=== PATIENT | male | born 2000 | race Caucasian/White ===

== ENCOUNTER 2022-07-10 07:06 | Observation (INO) ==
--- NOTE | 2022-07-04 16:15 | Anesthesiology Consultation ---
Date of Service July 04, 2022 Assessment & Plan (1) Encounter for pre-operative examination: Plan - check BSG and BMP STAT am DOS. - COVID screening: Per merit system director on 07/04/2022: Travel screen negative, no known COVID-19 positive contacts or current COVID-19 related symptoms in past 2 weeks. To surgeon's discretion if preop COVID testing is needed. Chart Review Chart Review: Acceptable Risk for Surgery and Patient NOT seen in Pre Admission Testing History Surgery Operation Date: 07/10/22 09:35 Proposed Procedures p Laparoscopic Cholecystectomy - Osorio Perea MD Height/Weight Height: 6 ft 2 in Weight: 83.007 kg Allergies Allergy/AdvReac Type Severity Reaction Status Date / Time No Known Allergies Allergy Verified 07/04/22 15:02 Medications Home Medications Medication Instructions Recorded Confirmed Last Taken creatine monohydrate 1 ea PO QAM 07/04/22 07/04/22 Unknown insulin aspart U-100 100 unit/mL 1 unit continuous subcutaneous 07/04/22 07/04/22 Unknown subcutaneous solution (Novolog infusion UD U-100 Insulin aspart) multivitamin 1 tab PO QAM 07/04/22 07/04/22 Unknown zinc 50 mg tablet 50 mg PO QAM 07/04/22 07/04/22 Unknown Past Medical History Medical History DM type 1 (diabetes mellitus, type 1) GERD (gastroesophageal reflux disease) occasional Insulin pump in place Past Family History Family History Other Heart disease No family history of adverse response to anesthesia Past Surgical History Surgical History History of appendectomy History of esophagogastroduodenoscopy (EGD) History of wisdom tooth extraction Social History Smoking Status: Never smoker Do You Dip or Chew Tobacco: No Hx Alcohol Use: No alcohol intake frequency: a few times a month Hx Substance Use: No substance use type: does not use
[~2022-07-10 07:06] MED LIST: LR 15ML/HR IV SCH; ceFAZolin 2000MG 2,000 MG/15 ML SYR IV SCH
[2022-07-10] MEDS ORDERED: METOCLOPRAMIDE HCL INJ 5 MG/ML 2 ML VIAL ONE (07:44)
[2022-07-10] MEDS ORDERED: MIDAZOLAM HCL 1 MG/ML 2ML VIAL ONE (07:44)
[2022-07-10] MEDS ORDERED: fentaNYL citrate 100 MCG/2 ML VIAL ONE ×2 (07:44→08:59)
[2022-07-10] MEDS ORDERED: ONDANSETRON INJ 2 MG/ML 2 ML VIAL ONE (07:45)
[2022-07-10] MEDS ORDERED: LIDOCAINE 2% MPF LOCAL 5 ML VIAL INFIL ONE (07:45)
[2022-07-10] MEDS ORDERED: PROPOFOL IV EMULSION 10 MG/ML 20 ML VIAL IV ONE (07:45)
[2022-07-10 08:03] LABS: BUN Creatinine Ratio 13.1 (10-20); Calcium 9.1 mg/dl (8.5-10.1); Creatinine Clr Calc Pharmacy 111.4 ml/min; Est GFR (African American) 97.6 ml/min; Est GFR (Non-African American) 84.2 ml/min; Potassium 3.7 mmol/L (3.5-5.1)
--- NOTE | 2022-07-10 08:10 | History & Physical Bridge Note ---
Date of Service July 10, 2022 History & Physical Bridge Note I have examined the patient, reviewed the History & Physical and in the interval since the performance of the History & Physical I have noted the following changes of clinical significance: no changes noted
[2022-07-10] MEDS ORDERED: ATROPINE SULFATE 0.1 MG/ML 10ML SYR IV PRN (08:17)
[2022-07-10] MEDS ORDERED: ePHEDrine sulfate 50 MG/ML AMP IV PRN (08:17)
[2022-07-10] MEDS ORDERED: ONDANSETRON INJ 2 MG/ML 2 ML VIAL IV PRN ×2 (08:17→16:40)
[2022-07-10] MEDS ORDERED: BUPIVACAINE/EPINEPHRINE 0.25% 1:200,000 30 ML VIAL ONE (08:31)
[2022-07-10] MEDS ORDERED: GLYCOPYRROLATE 0.2 MG/ML VIAL ONE (09:14)
[2022-07-10] MEDS ORDERED: NEOSTIGMINE METHYLSULFATE 1 MG/ML 10ML VIAL ONE (09:14)
--- NOTE | 2022-07-10 09:19 | Post Operative Brief Note ---
Immediate Post Op Note v1 Date of Surgery July 10, 2022 Pre & Post Diagnosis Operation Date: 07/10/22 08:45 Pre-Op Diagnosis: Biliary Dyskinesia Post-Op Diagnosis: Biliary Dyskinesia I identified the patient and participated in the time-out.: Yes Procedure Operation Date: 07/10/22 08:45 Actual Procedures p Laparoscopic Cholecystectomy(Not Applicable) - Osorio Perea MD Surgeon Osorio Perea MD Manager Facility [employer] assisted with tissue retraction, camera op, closure Estimated Blood Loss 2 Findings Consistent with Post-Op Diagnosis
--- NOTE | 2022-07-10 09:20 | Operative Report ---
Post Operative Report Pre & Post Diagnosis Operation Date: 07/10/22 08:45 Pre-Op Diagnosis: Biliary Dyskinesia Post-Op Diagnosis: Biliary Dyskinesia I identified the patient and participated in the time-out.: Yes Procedure Operation Date: 07/10/22 08:45 Actual Procedures p Laparoscopic Cholecystectomy(Not Applicable) - Osorio Perea MD Surgeon Osorio Perea MD Dress Shoe Inspector [employer] assisted with tissue retraction, camera op, closure Estimated Blood Loss 2 Findings Consistent with Post-Op Diagnosis Specimens Gallbladder Drains None Anesthesia Type General Complications No immediate complication Description of Procedure The patient was taken to the operating room, and placed supine on the operating table. A timeout was performed, perioperative antibiotics were administered, SCD boots were placed. After adequate anesthesia and analgesia was obtained, the abdomen was prepped and draped in the normal sterile fashion. Local anesthetic was injected into and around the proposed incision sites. An incision was made with a 15 blade scalpel in the supraumbilical region and carried down to the level of the fascia. The fascia was grasped with a trach hook, and a varies needle was used to enter the abdominal cavity. The abdomen was insufflated to a pressure of 15 mmHg, and a 11 mm trocar was placed in this location. A 10 mm, 30 degree laparoscope was placed into the abdominal cavity, and the abdomen was surveyed. Two 5 mm trochars were placed along the right costal margin, and one 5 mm trocar was placed in the subxiphoid region under direct visualization. The gallbladder was grasped and retracted cephalad and laterally, exposing the triangle of Calot. Dissection began in the triangle with a combination of blunt dissection with the [place] dissector, and judicious use of the hook cautery. The cystic duct and cystic artery were dissected free circumferentially, and a critical view of safety was obtained. The cystic duct and cystic artery were clipped and transected, and the gallbladder was removed from the gallbladder fossa with the hook cautery. The camera was switched to a 5 mm, the gallbladder was placed in an Endo Catch bag, and removed via the supraumbilical port site. The camera was switched back to the 10 mm camera, and the abdomen was surveyed again. Hemostasis was checked and attended, and was excellent. The abdomen was copiously irrigated and sucti oned free. Again hemostasis was checked and was excellent. All trochars were removed under direct visualization. The abdomen was desufflated. The fascia in the 11 mm port site was closed with a 0 Vicryl suture. The skin was closed with a running 4-0 Monocryl subcuticular stitch. Dermabond was applied. The patient tolerated the procedure without complication, and was transferred in stable condition to the PACU. All instrument, needle, and sponge counts were correct at the end of the case. My assistant fitness manager was necessary throughout the procedure for tissue retraction, possible camera operation, and closure of the wounds. I understand that section 1842(b)(7)(D) of the Social Security act generally prohibits Medicare physician fee schedule payment for the services of assistants at surgery in teaching hospitals when qualified residents are available to furnish such services. I certify that the services for which payment is claimed were medically necessary and that no qualified resident was available to perform the services. I further understand that these services are subject to postpayment review by the Medicare carrier. I attest to the content of the Intraoperative Record and any orders documented therein. Any exceptions are noted below.
[2022-07-10] MEDS: fentaNYL citrate 100 MCG/2 ML VIAL IV PRN ×4 (10:12→10:28)
[2022-07-10] MEDS ORDERED: ACETAMINOPHEN 1000 MG/100 ML IV IV ONE (10:44)
--- NOTE | 2022-07-10 11:01 | Anesthesiology Progress Note ---
Date of Service July 10, 2022 Anesthesia Post Procedure Vital Signs Vital Signs: Temp Pulse Pulse Resp BP Pulse Ox O2 Del Method 07/10/22 10:20 74 16 150/72 H 93 07/10/22 10:30 68 17 128/62 93 07/10/22 10:10 66 13 135/72 98 07/10/22 10:00 58 L 12 130/54 L 97 Oxymask 07/10/22 09:50 72 14 116/54 L 97 Oxymask 07/10/22 09:43 36.2 C L 62 15 113/42 L 92 Oxymask 07/10/22 07:42 36.7 C 88 18 142/62 H 99 Room Air O2 Flow Rate 07/10/22 10:20 0 07/10/22 10:30 0 07/10/22 10:10 0 07/10/22 10:00 3 07/10/22 09:50 5 07/10/22 09:43 9 07/10/22 07:42 Transfer of Care Handoff Completed per policy Notes Mental Status: alert / awake / arousable Patient Amnestic to Procedure: Yes Nausea / Vomiting: adequately controlled Pain: adequately controlled Airway Patency, RR, SpO2: stable & adequate BP & HR: stable & adequate Hydration State: stable & adequate Anesthetic Complications: no major complications apparent
[2022-07-10] MEDS ORDERED: oxyCODONE/ACETAMINOPHEN 5mg/325mg TAB PO ONE (11:23)
[2022-07-10] MEDS ORDERED: oxyCODONE/ACETAMINOPHEN 5mg/325mg TAB PO PRN (16:44)
--- NOTE | 2022-07-10 17:22 | Consultation ---
Date of Consultation July 10, 2022 Assessment & Plan (1) Syncope: (2) S/P laparoscopic cholecystectomy: (3) DM type 1 (diabetes mellitus, type 1): (4) GERD (gastroesophageal reflux disease): Plan 21-year-old underwent laparoscopic cholecystectomy today with Dr. Perea after failed conservative treatment for nausea. Patient is a type I diabetic and has his own insulin pump for management. Admission overnight for postop medical management. s/p Laparoscopic cholecystectomy: POD #0 s/p laparoscopic cholecystectomy under the care of Dr. Perea. EBL 2 mL Per general surgery for pain control, wound care, anticoagulation and activities Monitor H&H; Baseline hemoglobin not available; trend in a.m. continue incentive spirometry PT/OT when appropriate/if necessary Diabetes Mellitus, type 1: Diagnosed at age 4; without complications. Patient has not had pump malfunction in a long while and is well controlled on his pump Has his own insulin pump; t-slim X2 Tandem Glycemic pharmacy order placed; protocol in place Takes Creatinine 5000mg pack weekly Tolerating full liquid; advance to diabetic diet in a.m. Disposition: PCP: Dr. Alvarez Code: Full VTE Prophylaxis: By primary team I personally was able to review all current laboratory work and diagnostic images obtained in the ED. Additionally, I was able to review the patients past medication reconciliation and history with direct visualization in the patients chart. I collaborated with Dr. Robertson regarding this patient. Please feel free [facility] at any time via [facility] connect. Thank you kindly for the consultation. Supervising Physician Co-Signing Physician Notes I have seen and examined the patient and have discussed the case with the provider above. I agree with the assessment and plan as stated. My physical exam reflects that above. Wounds are closed and healing well. Suspect postop fentanyl +/- percocet to have played a role in his syncopal episode today. Mom is with him at bedside and plan was reviewed. Will cont to monitor BSG--patient is on his home insulin pump--and home in am if feeling well. No further workup needed for syncopal episode unless recurrent. DO Marcelo History of Present Illness Requesting Physician: Dr. Perea Reason for Consultation: Postoperative medical management Attending Physician: Osorio Perea MD History of Present Illness Mr. Charlie Manzo is a 21-year-old that underwent an uneventful laparoscopic cholecystectomy today under the care of Dr. Perea after unsuccessful outpatient management of his symptoms.Mr Blankenship is being admitted under surgical services and [facility] for postoperative medical management. The patient has been experiencing nausea since August 2021 and started to see GI at [facility] in October 2021. HIDA scan showed EF 88%, EGD was unremarkable, gastric emptying study was normal; however, his symptoms did not improve despite PPI. An abdominal ultrasound was performed with noted sludge and polyp leading to his elective surgery today. Additional past medical history includes type 1 diabetes (diagnosed when he was 4 years old and has been on an insulin pump since he is 5 years old) and GERD. The patient denies headache, dizziness, chest pain, shortness of breath, palpitations, nausea, vomiting, diarrhea. Patient reports slight pain 2 out of 10 but otherwise no complaints postoperatively. He is awake alert oriented x4 and able to answer all questions appropriately. Please see A/P for further details. Allergies Allergy/AdvReac Type Severity Reaction Status Date / Time No Known Allergies Allergy Verified 07/10/22 07:53 Home Medications Medication Instructions Recorded Confirmed Type creatine monohydrate 1 ea PO QAM 07/04/22 07/10/22 History insulin aspart U-100 100 unit/mL 1 unit continuous subcutaneous 07/04/22 07/10/22 History subcutaneous solution (Novolog infusion UD U-100 Insulin aspart) multivitamin 1 tab PO QAM 07/04/22 07/10/22 History zinc 50 mg tablet 50 mg PO QAM 07/04/22 07/10/22 History oxycodone-acetaminophen 5 mg-325 1 tab PO Q6H PRN pain #10 tabs 07/10/22 07/10/22 Rx mg tablet (Percocet) Patient History Medical History DM type 1 (diabetes mellitus, type 1) GERD (gastroesophageal reflux disease) occasional Insulin pump in place Surgical History History of appendectomy History of esophagogastroduodenoscopy (EGD) History of wisdom tooth extraction S/P laparoscopic cholecystectomy Family History (Updated 07/10/22 @ 20:25 by SKYLAR Everett) Other Heart disease Social History Smoking Status: Never smoker Second Hand Exposure: No; Do You Dip or Chew Tobacco: No; Hx Alcohol Use: No Hx Substance Use: No Preferred Language: Frisian Communication Ability: Effective Music Professor Required: No Beliefs That Will Affect Care: None Current Living Situation: Other Current Living Situation Comment: roommates Feels Safe at Home: Yes Safety Concerns: Feels Safe At This Time Assistive Devices: None Review of Systems Review of Systems: Neuro: (-) Falls, trauma, slurred speech HEENT: (-) [place], dizziness, dysphagia, visual or auditory changes CV: (-) CP, palpitations, swelling Resp: (-) SOB GI: (-) appetite changes, N/V/D, bowel changes : (-) urinary changes Skin: (-) rashes Psych: (-) anxiety, depression Physical Exam Physical Exam: Neuro: AAOx4, PERRLA, no aphagia, memory changes, CNII-XII grossly intact HEENT: head normocephalic, moist mucus membranes CV: S1/S2, (-) M/G/R, (-) edema, cap refill < 3 seconds Resp: Lungs CTA in all huber. On RA GI: Abdomen S/NT/ND, Ax4 bowel sounds, (-) CVA tenderness incisions fro lap rosae lena x4 Musculoskeletal: 5/5 B/L UE strength, 5/5 B/L LE strength. No gait disturbance Skin: (-) rashes , (-) erythema. Psych: euthymic mood Results & Data ([facility]) Vital Signs (Past 12 Hours) Vital Signs Temp Pulse Pulse Resp BP Pulse Ox O2 Del Method 07/10/22 11:10 36.7 C 18 104/59 L 94 Room Air 07/10/22 11:00 36.7 C 66 11 L 118/76 95 Nasal Cannula 07/10/22 10:50 36.7 C 75 10 L 98/65 L 96 Nasal Cannula 07/10/22 10:40 36.7 C 70 11 L 139/76 93 07/10/22 10:20 74 16 150/72 H 93 07/10/22 10:30 68 17 128/62 93 07/10/22 10:10 66 13 135/72 98 11/07/22 10:00 58 L 12 130/54 L 97 Oxymask 07/10/22 09:50 72 14 116/54 L 97 Oxymask 07/10/22 09:43 36.2 C L 62 15 113/42 L 92 Oxymask 07/10/22 07:42 36.7 C 88 18 142/62 H 99 Room Air O2 Flow Rate 07/10/22 11:10 07/10/22 11:00 2 07/10/22 10:50 2 07/10/22 10:40 0 07/10/22 10:20 0 07/10/22 10:30 0 07/10/22 10:10 0 07/10/22 10:00 3 07/10/22 09:50 5 07/10/22 09:43 9 07/10/22 07:42 Laboratory Results [facility] 07/10/22 07:22 Sodium 138 Potassium 3.7 Chloride 103 Carbon Dioxide 30 BUN 16 Creatinine 1.22 Glucose 144 H Calcium 9.1
[2022-07-10] MEDS ORDERED: PHARMACY GLYCEMIC MGMT CONSULT PRN (17:47)
[2022-07-10] MEDS ORDERED: INSULIN, Rapid-Acting PUMP ONE (18:00)
[2022-07-10] MEDS ORDERED: GLUCAGON FOR INJ 1 MG VIAL IM PRN (18:00)
[2022-07-10] MEDS ORDERED: INSULIN ASPART 100 UNITS/ML VIAL SC PRN (18:00)
[2022-07-10] MEDS ORDERED: CARBOHYDRATES FOR HYPOGLYCEMIA PO PRN (18:00)
[2022-07-10] MEDS ORDERED: GLUCOSE 40% GEL 15 GM TUBE PO PRN (18:00)
[2022-07-10] MEDS ORDERED: DEXTROSE 50% 50 ML SYRINGE IV PRN (18:00)
[2022-07-10] MEDS ORDERED: GLUCOSE 10 TAB/TUBE PO PRN (18:00)
[2022-07-10] MEDS: IBUPROFEN 600 MG TAB PO SCH (18:51)
[2022-07-10] MEDS: ACETAMINOPHEN 500 MG TAB PO SCH (20:01)
[2022-07-10] MEDS: INSULIN, Rapid-Acting PUMP SCH (20:04)
[2022-07-11] MEDS: IBUPROFEN 600 MG TAB PO SCH ×2 (01:14→06:36)
[2022-07-11] MEDS: ACETAMINOPHEN 500 MG TAB PO SCH ×2 (04:23→08:41)
[2022-07-11 06:21] LABS: Hematocrit (blood only) 40.1 % (40.1-51.0); Hemoglobin 13.6 g/dl (14.0-18.0); Mean Corpuscular Hemoglobin 31.2 pg (25.0-34.0); Mean Corpuscular Hgb Conc 33.9 g/dL (32.0-36.0); Mean Platelet Volume 9.7 fL (9.4-12.4); Platelet Count 216 K/uL (130-400); RDW Coefficient of Variation 11.9 % (11.5-14.5); RDW Standard Deviation 40.4 fL (36.4-46.3); Red Blood Count 4.36 M/uL (4.63-6.08); White Blood Count 5.06 K/ul (4.8-10.8)
[2022-07-11 06:51] LABS: BUN Creatinine Ratio 10.9 (10-20); Calcium 8.7 mg/dl (8.5-10.1); Creatinine Clr Calc Pharmacy 105.3 ml/min; Est GFR (African American) 91.2 ml/min; Est GFR (Non-African American) 78.7 ml/min; Potassium 4.1 mmol/L (3.5-5.1)
[2022-07-11] MEDS: INSULIN, Rapid-Acting PUMP SCH (09:09)
--- NOTE | 2022-07-11 12:09 | Hospitalist Progress Note ---
Date of Service July 11, 2022 Assessment & Plan (1) S/P laparoscopic cholecystectomy: (2) DM type 1 (diabetes mellitus, type 1): (3) GERD (gastroesophageal reflux disease): Plan Patient is a 21 yr male who underwent laparoscopic cholecystectomy today with Dr. Perea after failed conservative treatment for nausea. Patient is a type I diabetic and has his own insulin pump for management. Admission overnight for postop medical management. Biliary Dyskinesia S/P Laparoscopic cholecystectomy by Dr. Perea on 07/10/22 Pain is controlled Continue wound care Tolerated diet continue incentive spirometry DM Type 1: Diagnosed at age 4 on Insulin Pump Monitor BGs Code Status: Full Code Disposition Home Admission and Anticipated Discharge Date Admission Date: July 10, 2022 Subjective Patient is seen and examined at bedside States feeling well today No significant abdominal pain at surgical site Tolerating diet Denies any nausea, vomiting, dizziness, chest pain, dyspnea Plan to be discharged home today Review of Systems Review of Systems: All systems reviewed & are unremarkable except as noted in Subjective Physical Exam Physical Exam: Physical Exam: Vitals signs as noted above General Appearance:Moderately built and nourished, no apparent distress Head: normocephalic, Atraumatic Eyes: normal inspection, EOMI Neck: supple, Trachea midline Respiratory/Chest: Normal breath sounds, CTA, No accessory muscle use Cardiovascular: S1, S2, No murmur Abdomen/GI:Soft, Non tender, +Surgical scars, Bowel sounds present Extremities/Musculoskeletal:normal inspection, no edema Neurologic/Psych:AAOX3, grossly no focal neurological deficits Skin: normal color, warm Results & Data Results & Data ([facility]) Vital Signs (Past 12 Hours) Vital Signs Temp Pulse Pulse Resp BP Pulse Ox O2 Del Method 07/11/22 08:53 36.6 C 69 18 123/67 97 Room Air 07/11/22 07:32 36.8 C 93 H 87 18 115/50 L 97 Laboratory Results Short CBC 07/11/22 Range/Units 05:50 WBC 5.06 (4.8-10.8) K/ul Hgb 13.6 L (14.0-18.0) g/dl Hct 40.1 (40.1-51.0) % Plt Count 216 (130-400) K/uL BMP 07/11/22 05:50 Sodium 137 Potassium 4.1 Chloride 104 Carbon Dioxide 29 BUN 14 Creatinine 1.29 Glucose 153 H Calcium 8.7
--- NOTE | 2022-07-13 11:15 | Discharge Summary ---
Date of Service July 13, 2022 Principal Diagnosis biliary dyskinesia Discharge Data Allergies Allergy/AdvReac Type Severity Reaction Status Date / Time No Known Allergies Allergy Verified 07/10/22 07:53 Consultations 07/10/22 15:57 Consult Hospitalist Routine Procedures Performed Operation Date: 07/10/22 08:45 Actual Procedures p Laparoscopic Cholecystectomy(Not Applicable) - Osorio Perea MD Hospital Course (1) S/P laparoscopic cholecystectomy: (2) DM type 1 (diabetes mellitus, type 1): (3) Syncope: Plan patient was admitted from home to the same-day surgery area was taken for a laparoscopic cholecystectomy for biliary dyskinesia. Details of this are dictated as separate operative note. Postoperatively he was set to go home, however he noted dizziness and syncope. He did have 1 syncopal episode in the same-day surgery area following the surgery. He was admitted to the hospital for observation. Of note he does have a insulin pump for his type 1 diabetes. His sugars were normal. He was admitted overnight. His diet was advanced as tolerated. Pain was controlled. DVT prophylaxis with SCD boots and Lovenox. By the next morning, he would had no further syncopal episodes, was tolerating regular diet, and was discharged to home in stable condition. He will follow up in clinic in 2 weeks. Total Time Total Time Spent Total Time Spent (In Minutes): 30 minutes Discharge Plan Discharge Items Patient Disposition: Home - Self-Care Reason For Visit: Biliary Dyskinesia Discharge Diagnosis: Biliary dyskinesia Activity: Per Instructions section Lifting: No more than 25 pounds Sexual Activity: Wait until after follow-up appointment Exercise/Sports: Wait until after follow-up appointment Non-emergency contact: Primary Care Provider and Surgeon Call non-emergency contact if: you have any medication questions, your symptoms worsen, your pain is not controlled, your pain is worsening, your pain is unusual for you, your pain is concerning for you, your temperature is above 101.5, your wound has increased redness, your wound has increased drainage and your wound pain has increased Follow-up/Referrals: Osorio Perea MD [Physician] - 07/25/22 8:30 am Reggie Alvarez M.D. [Primary Care Provider] - Diet: Carb Count or DM1 Addtl Attending Provider Instructions: Post-Surgical ~Discharge Instructions Activity Recommendations: - lifting limitation: (20 pounds for 2 weeks), - exercise/sex/sports limit: (nonstrenuous for 2 weeks), - driving or machine use limit: (none for 1 week), - Shower/bathe limit: (may shower beginning tomorrow) Diet: - Resume previous diet SPECIAL CARE INSTRUCTIONS: - May shower in 24 hours. Let water run over area and pat dry. - Leave Dermabond in place. - Call the surgeon's office with any questions or concerns - - (ex. temperature higher than 101 degrees F, excessive bleeding or pain). MEDICATIONS: - Resume previous medications unless instructed otherwise by your surgeon. - Ibuprofen 600 mg every 6 hours with food - Percocet 1 every 4 hours, as needed for pain FOLLOW UP VISIT: - If not already scheduled, please call the office to schedule a two week follow-up appointment. Office number Pending Studies at Discharge: No Stand-Alone Forms: Anesthesia/Sedation, Adult, [facility] Medications and DC Order Prescriptions: New oxycodone-acetaminophen [Percocet] 5-325 mg tablet 1 tab PO Q6H PRN (Reason: pain) Qty: 10 0RF Continued insulin aspart U-100 [Novolog U-100 Insulin aspart] 100 unit/mL Solution 1 unit continuous subcutaneous infusion UD multivitamin Tablet 1 tab PO QAM zinc 50 mg Tablet 50 mg PO QAM creatine monohydrate Powder 1 ea PO QAM Discharge Orders: Discharge Order (Routine); Ordered 07/10/22 Ordered By: Osorio Sanon/Other Patient Handouts: DVT Post Op Prevention Admission Data Admit Date/Time: 07/10/22 15:52 Attending Provider: Osorio Perea Admit Provider: Osorio Perea Primary Care Provider: Reggie Alvarez Other Providers: Lexx Ramirez Other Interventions: Discharge Summary Assessment (RN) Last Done: 07/11/22 07:32
== END 2022-07-11 11:57 | disposition home or self-care (01) ==
LOC: 3N 07:06 → ASU 07:06